=== PATIENT | male | born 1960 | race African-American/Black ===

== ENCOUNTER 2017-02-08 12:55 | Inpatient (IN) | payer OTHER ==
[2017-02-08 13:20] VITALS: BMI 41.1
--- NOTE | 2017-02-08 16:07 | HP ---
Admission [facility] Chief Complaint: I need help to stay off of alcohol and cocaine . Allergies/Adverse Reactions: Allergies Allergy/AdvReac Type Severity Reaction Status Date / Time Penicillins Allergy Severe "SPASMS, Verified 02/08/17 16:11 TONSILS SWELL" History of Present Illness: 56 y/o m pt with a h/o chronic alcoholism and cocaine dep. seeking detox. Exam Limitations: No Limitations - Ebola screening Have you traveled outside of the country in the last 21 days: No Have you had contact with anyone from an Ebola affected area: No Have you been sick,other than usual withdrawal symptoms: No Do you have a fever: No - Review of Systems EENT: reports: Blurred Vision (wears glasses - corrective), Nose Congestion ( occas allergis seasonal) Respiratory: reports: No Symptoms reported GI: reports: No Symptoms Reported : reports: No Symptoms Reported Musculoskeletal: reports: Joint Pain (rt knee), Muscle Pain (thigh) Integumentary: reports: No Symptoms Reported Neuro: reports: No Symptoms reported Endocrine: reports: No Symptoms Reported Hematology: reports: No Symptoms Reported Psychiatric: reports: No Sypmtoms Reported Other Systems: Reviewed and Negative Patient History - Patient Medical History Hx Anemia: No Hx Asthma: No Hx Chronic Obstructive Pulmonary Disease (COPD): No Hx Cancer: No Hx Cardiac Disorders: No Hx Congestive Heart Failure: No Hx Hypertension: Yes Hx Hypercholesterolemia: Yes Hx Pacemaker: No HX Cerebrovascular Accident: No Hx Seizures: No Hx Dementia: No Hx Diabetes: No Hx Gastrointestinal Disorders: No Hx Liver Disease: No Hx Genitourinary Disorders: No Hx Renal Disease (ESRD): Yes (kidney bx at young age) Hx Thyroid Disease: No Hx Human Immunodeficiency Virus (HIV): No Hx Hepatitis C: No Hx Depression: No - Patient Surgical History Past Surgical History: Yes Hx Neurologic Surgery: No Hx Cataract Extraction: No Hx Cardiac Surgery: No Hx Lung Surgery: No Hx Breast Surgery: No Hx Breast Biopsy: No Hx Abdominal Surgery: Yes (hernia repair) Hx Appendectomy: No Hx Cholecystectomy: No Hx Genitourinary Surgery: No Hx Orthopedic Surgery: (L knee meniscus repair 1988) Other Surgical History: BUNION SX Anesthesia Reaction: No - PPD History Previous Implant?: Yes Documented Results: Negative w/o proof PPD to be Administered?: Yes - Reproductive History Patient is a Female of Child Bearing Age (11 -55 yrs old): No - Smoking Cessation Smoking history: Never smoked Have you smoked in the past 12 months: No Aproximately how many cigarettes per day: 0 Cigars Per Day: 0 Hx Chewing Tobacco Use: No Initiated information on smoking cessation: No 'Breaking Loose' booklet given: 02/08/17 - Substance & Tx. History Hx Alcohol Use: Yes Hx Substance Use: Yes Substance Use Type: Alcohol, Cocaine Hx Substance Use Treatment: Yes - Substances Abused Cocaine Route: Inhalation Frequency: 1-2 times per week Amount used: $40 Age of first use: 15 Date of Last Use: 02/08/17 Alcohol-beer Route: Oral Frequency: 3-6 times per week Amount used: 2 (24 oz.) Age of first use: 13 Date of Last Use: 02/08/17 Family Disease History - Family Disease History Family Disease History: Other: Mother (htn) Admission Physical Exam [facility] - Vital Signs Vital Signs: Vital Signs - 24 hr 02/08/17 13:16 Temperature 97 F L Pulse Rate 89 Respiratory 20 Rate Blood Pressure 142/84 56 y/o obese m pt in nad ambulates with a cane - Physical General Appearance: Yes: Disheveled HEENTM: Yes: EOMI, Hearing grossly Normal, Normocephalic, Normal Voice, NICKI Neck: Yes: Within Normal Limits, Supple, Trachea in good position Breast: Yes: Within Normal Limits Cardiology: Yes: Regular Rhythm, Regular Rate, S1, S2 Abdominal: Yes: Normal Bowel Sounds, Non Tender, Soft, Protuberent Genitourinary: Yes: Frequency Back: Yes: Decreased Range of Motion Musculoskeletal: Yes: Back pain, Joint Stiffness (rt knee , left knee well healed scar), Muscle Pain Extremities: Yes: Within Normal Limits Neurological: Yes: nurse office II-XII NML intact, Fully Oriented, Alert Integumentary: Yes: Moist Lymphatic: Yes: Within Normal Limits - Diagnostic (1) Alcohol abuse Current Visit: Yes Status: Chronic (2) Cocaine abuse Current Visit: Yes Status: Chronic (3) Osteoarthritis Current Visit: Yes Status: Chronic Qualifiers: Osteoarthritis location: knee Laterality: bilateral (4) HTN (hypertension) Current Visit: Yes Status: Chronic Qualifiers: Hypertension type: essential hypertension Qualified Code(s): I10 - Essential (primary) hypertension (5) Hyperlipidemia Current Visit: Yes Status: Chronic Qualifiers: Hyperlipidemia type: unspecified Qualified Code(s): E78.5 - Hyperlipidemia, unspecified (6) Obesity Current Visit: Yes Status: Chronic Qualifiers: Obesity severity: unspecified obesity severity Cleared for Admission [facility] - Detox or Rehab [facility] Level of Care: Medically Managed Detox Regimen/Protocol: Librium [facility] Breath Alcohol Content Breath Alcohol Content: 0.073 Urine Drug Screen - Results Drug Screen Negative: No Urine Drug Screen Results: TARYN-Cocaine
[2017-02-08] MEDS ORDERED: diphenhydrAMINE HCL 50 MG CAPSULE PO PRN (16:12)
[2017-02-08] MEDS ORDERED: MENTHOL/PHENOL 1 EACH UD MM PRN (16:12)
[2017-02-08] MEDS ORDERED: hydrOXYzine PAMOATE 25 MG CAPSULE (FP) PO PRN (16:12)
[2017-02-08] MEDS ORDERED: guaiFENesin/D-METHORPHAN HB 10 ML UNIT-DOSE CUPS PO PRN (16:12)
[2017-02-08] MEDS ORDERED: MAG HYDROX/AL HYDROX/SIMETH 30 ML UNIT-DOSE CUP PO PRN (16:12)
[2017-02-08] MEDS ORDERED: MAGNESIUM CITRATE 300 ML BOTTLE PO PRN (16:12)
[2017-02-08] MEDS ORDERED: LOPERAMIDE HCL 2 MG CAPSULE PO PRN (16:12)
[2017-02-08] MEDS ORDERED: chlordiazePOXIDE HCL 25 MG CAPSULE PO PRN (16:12)
[2017-02-08] MEDS ORDERED: IBUPROFEN 400 MG TABLET (FP) PO PRN (16:12)
[2017-02-08] MEDS ORDERED: P-EPHED 60MG/TRIPROLIDI 2.5MG TABLET PO PRN (16:12)
[2017-02-08] MEDS: PATIENT'S OWN MEDICATION (NON-FORMULARY) (Simvastatin 40 MG) PO SCH (21:17)
[2017-02-08] MEDS: DICLOFENAC SODIUM 75 MG TABLET.DR PO SCH (21:17)
[2017-02-08] MEDS: THIAMINE HCL 100 MG TABLET (FP) PO SCH (21:17)
[2017-02-08] MEDS: MAGNESIUM HYDROX 2400MG/30ML ORAL SUSPENSION 30 ML CUP PO PRN (21:33)
[2017-02-08 23:00] LABS: URINE APPEARANCE CLEAR; URINE BILIRUBIN NEGATIVE (NEGATIVE); URINE BLOOD NEGATIVE (NEGATIVE); URINE COLOR STRAW; URINE GLUCOSE (UA) NEGATIVE (NEGATIVE); URINE KETONE NEGATIVE (NEGATIVE); URINE LEUK ESTERASE NEGATIVE (NEGATIVE); URINE NITRITE NEGATIVE (NEGATIVE); URINE PROTEIN NEGATIVE (NEGATIVE); URINE UROBILINOGEN NEGATIVE E.U./dl (0.2-1.0)
[2017-02-08] MEDS ORDERED: chlordiazePOXIDE HCL 25 MG CAPSULE PO SCH (23:00)
--- NOTE | 2017-02-09 06:52 | HP ---
Psychiatrist Admission - Data Date of interview: 02/09/17 Admission source: [facility] Identifying data: This is the first [facility] admission for this 56 years old single Black male, employed as high school band director in [employer] , dimiciled Medical History: Significant for HTN, Hyperlipidemia, Osteoarthritis, Obesity, Neprotic syndrome and surgery for repair of left knee meniscus in 1988 and left total knee replacement in 2016 Psychiatric History: Denies history of previous psychiatric treatment Physical/Sexual Abuse/Trauma History: Denies history of emotionasl, physical or sexual abuse as well as DV relationship Additional Comment: No criminal history Vital Signs: Vital Signs - 24 hr 02/08/17 02/09/17 02/09/17 13:16 00:30 03:30 Temperature 97 F L Pulse Rate 89 Respiratory 20 16 16 Rate Blood Pressure 142/84 Allergies/Adverse Reactions: Allergies Allergy/AdvReac Type Severity Reaction Status Date / Time Penicillins Allergy Severe "SPASMS, Verified 02/08/17 16:11 TONSILS SWELL" Date of last physical exam: 02/09/17 Concur with the findings of this exam: Yes - Substance Abuse/Tx History Hx Alcohol Use: Yes Hx Substance Use: Yes Substance Use Type: Alcohol (Started drinking alcohol at age 13, consumes 2x 24oz 3-6 times weekly. Last drink on 02/08/17), Cocaine (Started using cocaine at age 15, Consumes $40 woth 1-2 times weekly. Last used on 02/08/17) Hx Substance Use Treatment: Yes (one previous inpt detox and one inpt rehab( [facility])) - Admission Criteria Previous failed treatment: No Poor recovery environment: Yes Comorbidities: Yes Lacks judgement: Yes Mental Status Exam - Mental Status Exam Alert and Oriented to: Time, Place, Person Cognitive Function: Fair Patient Appearance: Well Groomed Mood: Happy Affect: Appropriate Patient Behavior: Cooperative Speech Pattern: Clear Voice Loudness: Normal Thought Process: Intact Thought Disorder: Not Present Hallucinations: Denies Suicidal Ideation: Denies Homicidal Ideation: Denies Insight/Judgement: Fair Sleep: Well Appetite: Good Gait/Station: Ataxic (ambulates with cane) Psychiatric Findings - Problem List ([place] 1, 2,3) (1) Alcohol dependence Current Visit: Yes Status: Acute (2) Cocaine dependence Current Visit: Yes Status: Acute (3) HTN (hypertension) Current Visit: Yes Status: Chronic Qualifiers: Hypertension type: essential hypertension Qualified Code(s): I10 - Essential (primary) hypertension (4) Hyperlipidemia Current Visit: Yes Status: Chronic Qualifiers: Hyperlipidemia type: unspecified Qualified Code(s): E78.5 - Hyperlipidemia, unspecified (5) Obesity Current Visit: Yes Status: Chronic Qualifiers: Obesity severity: unspecified obesity severity (6) Osteoarthritis Current Visit: Yes Status: Chronic Qualifiers: Osteoarthritis location: knee Laterality: bilateral - Initial Treatment Plan Initial Treatment Plan: Monitor progress
[2017-02-09] MEDS ORDERED: PT OWN MED DRAWER 7, Y5N ONE ×3 (08:52→20:31)
[2017-02-09 09:58] LABS: MCH 26.2 pg (25.7-33.7); MCHC 33.1 g/dl (32.0-35.9); MEAN CELL VOLUME 79.1 fl (80-96); MEAN PLT VOLUME 8.9 fl (7.5-11.1); PLATELET COUNT 260 K/MM3 (134-434); WHITE BLOOD COUNT 10.5 K/mm3 (4.0-10.0)
[2017-02-09] MEDS ORDERED: amLODIPine BESYLATE 10 MG TABLET (FP) PO SCH (10:00)
[2017-02-09] MEDS: PATIENT'S OWN MEDICATION (NON-FORMULARY) (Olmesartan/Hydrochlorothiazide [Benicar Hct 40-2 PO SCH (10:17)
[2017-02-09] MEDS: amLODIPine BESYLATE 10 MG TABLET (FP) PO SCH (10:17)
[2017-02-09] MEDS: DICLOFENAC SODIUM 75 MG TABLET.DR PO SCH ×2 (10:17→21:34)
[2017-02-09] MEDS: NEBIVOLOL 10 MG TABLET (FP) PO SCH (10:17)
[2017-02-09] MEDS: PRENATAL VITAMINS W/ FOLIC ACID TABLET (FP) PO SCH (10:17)
[2017-02-09] MEDS: ASPIRIN 325 MG TABLET PO SCH (10:18)
[2017-02-09 10:37] LABS: ALBUMIN 4.2 g/dl (3.4-5.0); ANION GAP 6 (8-16); CALCIUM 9.2 mg/dL (8.5-10.1); CO2 31 mmol/L (21-32); GLUCOSE,RANDOM 110 mg/dL (74-106)
[2017-02-09 10:40] LABS: ALK PHOS 99 U/L (45-117); BILIRUBIN,TOTAL 0.6 mg/dL (0.2-1.0); COCKROFT - GAULT 156.86; CREATININE 0.8 mg/dL (0.7-1.3); SGOT/AST 30 U/L (15-37); SGPT/ALT 32 U/L (12-78); TOT PROT 8.1 g/dl (6.4-8.2)
--- NOTE | 2017-02-09 11:42 | EKG ---
Test Reason : Blood Pressure : / mmHG Vent. Rate : 074 BPM Atrial Rate : 074 BPM P-R Int : 162 ms QRS Dur : 092 ms QT Int : 406 ms P-R-T Axes : 057 -03 024 degrees QTc Int : 450 ms NORMAL SINUS RHYTHM POSSIBLE LEFT ATRIAL ENLARGEMENT WHEN COMPARED WITH ECG OF 13-AUG-2013 13:26, NO SIGNIFICANT CHANGE WAS FOUND Confirmed by JEROD PLAZA MD ([id number]) on 02/09/2017 11:42:02 AM Referred By: Confirmed By:JEROD PLAZA MD
[2017-02-09] MEDS: THIAMINE HCL 100 MG TABLET (FP) PO SCH (21:34)
[2017-02-09] MEDS: PATIENT'S OWN MEDICATION (NON-FORMULARY) (Simvastatin 40 MG) PO SCH (21:34)
[2017-02-09] MEDS ORDERED: chlordiazePOXIDE HCL 25 MG CAPSULE PO SCH (23:00)
[2017-02-10] MEDS ORDERED: PT OWN MED DRAWER 7, Y5N ONE ×3 (09:18→21:14)
[2017-02-10] MEDS: ASPIRIN 325 MG TABLET PO SCH (10:27)
[2017-02-10] MEDS: NEBIVOLOL 10 MG TABLET (FP) PO SCH (10:27)
[2017-02-10] MEDS: amLODIPine BESYLATE 10 MG TABLET (FP) PO SCH (10:28)
[2017-02-10] MEDS: PRENATAL VITAMINS W/ FOLIC ACID TABLET (FP) PO SCH (10:28)
[2017-02-10] MEDS: PATIENT'S OWN MEDICATION (NON-FORMULARY) (Olmesartan/Hydrochlorothiazide [Benicar Hct 40-2 PO SCH (10:28)
[2017-02-10] MEDS: DICLOFENAC SODIUM 75 MG TABLET.DR PO SCH ×2 (10:28→21:13)
[2017-02-10] MEDS: THIAMINE HCL 100 MG TABLET (FP) PO SCH (21:14)
[2017-02-10] MEDS: PATIENT'S OWN MEDICATION (NON-FORMULARY) (Simvastatin 40 MG) PO SCH (21:14)
[2017-02-10] MEDS ORDERED: chlordiazePOXIDE 5 MG CAPSULE PO SCH (23:00)
[2017-02-11] MEDS ORDERED: PT OWN MED DRAWER 7, Y5N ONE ×2 (08:47→21:16)
[2017-02-11] MEDS: DICLOFENAC SODIUM 75 MG TABLET.DR PO SCH ×2 (10:14→21:16)
[2017-02-11] MEDS: PRENATAL VITAMINS W/ FOLIC ACID TABLET (FP) PO SCH (10:14)
[2017-02-11] MEDS: amLODIPine BESYLATE 10 MG TABLET (FP) PO SCH (10:14)
[2017-02-11] MEDS: PATIENT'S OWN MEDICATION (NON-FORMULARY) (Olmesartan/Hydrochlorothiazide [Benicar Hct 40-2 PO SCH (10:14)
[2017-02-11] MEDS: ASPIRIN 325 MG TABLET PO SCH (12:35)
[2017-02-11] MEDS: NEBIVOLOL 10 MG TABLET (FP) PO SCH (12:35)
[2017-02-11] MEDS: PATIENT'S OWN MEDICATION (NON-FORMULARY) (Simvastatin 40 MG) PO SCH (21:16)
[2017-02-11] MEDS: THIAMINE HCL 100 MG TABLET (FP) PO SCH (21:16)
[2017-02-11] MEDS: MAGNESIUM HYDROX 2400MG/30ML ORAL SUSPENSION 30 ML CUP PO PRN (21:17)
[2017-02-11] MEDS ORDERED: chlordiazePOXIDE HCL 10 MG CAPSULE PO SCH (23:00)
[2017-02-12] MEDS ORDERED: PT OWN MED DRAWER 7, Y5N ONE ×2 (08:54→20:44)
[2017-02-12] MEDS: amLODIPine BESYLATE 10 MG TABLET (FP) PO SCH (10:18)
[2017-02-12] MEDS: ASPIRIN 325 MG TABLET PO SCH (10:18)
[2017-02-12] MEDS: PRENATAL VITAMINS W/ FOLIC ACID TABLET (FP) PO SCH (10:18)
[2017-02-12] MEDS: PATIENT'S OWN MEDICATION (NON-FORMULARY) (Olmesartan/Hydrochlorothiazide [Benicar Hct 40-2 PO SCH (10:19)
[2017-02-12] MEDS: DICLOFENAC SODIUM 75 MG TABLET.DR PO SCH ×2 (10:19→21:41)
[2017-02-12] MEDS: NEBIVOLOL 10 MG TABLET (FP) PO SCH (10:20)
[2017-02-12] MEDS: THIAMINE HCL 100 MG TABLET (FP) PO SCH (21:41)
[2017-02-12] MEDS: PATIENT'S OWN MEDICATION (NON-FORMULARY) (Simvastatin 40 MG) PO SCH (21:41)
[2017-02-13] MEDS ORDERED: PT OWN MED DRAWER 7, Y5N ONE ×2 (08:53→21:50)
[2017-02-13] MEDS: PRENATAL VITAMINS W/ FOLIC ACID TABLET (FP) PO SCH (09:39)
[2017-02-13] MEDS: amLODIPine BESYLATE 10 MG TABLET (FP) PO SCH (09:39)
[2017-02-13] MEDS: PATIENT'S OWN MEDICATION (NON-FORMULARY) (Olmesartan/Hydrochlorothiazide [Benicar Hct 40-2 PO SCH (09:39)
[2017-02-13] MEDS: ASPIRIN 325 MG TABLET PO SCH (09:39)
[2017-02-13] MEDS: DICLOFENAC SODIUM 75 MG TABLET.DR PO SCH ×2 (09:40→21:50)
[2017-02-13] MEDS: NEBIVOLOL 10 MG TABLET (FP) PO SCH (10:40)
[2017-02-13] MEDS: THIAMINE HCL 100 MG TABLET (FP) PO SCH (21:49)
[2017-02-13] MEDS: PATIENT'S OWN MEDICATION (NON-FORMULARY) (Simvastatin 40 MG) PO SCH (21:50)
[2017-02-13] MEDS: ACETAMINOPHEN 325 MG TABLET (FP) PO PRN (21:51)
[2017-02-14] MEDS ORDERED: PT OWN MED DRAWER 7, Y5N ONE ×2 (09:00→19:31)
[2017-02-14] MEDS: amLODIPine BESYLATE 10 MG TABLET (FP) PO SCH (10:02)
[2017-02-14] MEDS: DICLOFENAC SODIUM 75 MG TABLET.DR PO SCH ×2 (10:02→21:40)
[2017-02-14] MEDS: PRENATAL VITAMINS W/ FOLIC ACID TABLET (FP) PO SCH (10:02)
[2017-02-14] MEDS: ASPIRIN 325 MG TABLET PO SCH (10:02)
[2017-02-14] MEDS: NEBIVOLOL 10 MG TABLET (FP) PO SCH (10:03)
[2017-02-14] MEDS: PATIENT'S OWN MEDICATION (NON-FORMULARY) (Olmesartan/Hydrochlorothiazide [Benicar Hct 40-2 PO SCH (10:03)
[2017-02-14] MEDS: MAGNESIUM HYDROX 2400MG/30ML ORAL SUSPENSION 30 ML CUP PO PRN (10:04)
[2017-02-14] MEDS: THIAMINE HCL 100 MG TABLET (FP) PO SCH (21:39)
[2017-02-14] MEDS: PATIENT'S OWN MEDICATION (NON-FORMULARY) (Simvastatin 40 MG) PO SCH (21:39)
[2017-02-15] MEDS ORDERED: PT OWN MED DRAWER 7, Y5N ONE ×2 (09:23→21:30)
[2017-02-15] MEDS: DICLOFENAC SODIUM 75 MG TABLET.DR PO SCH ×2 (10:11→21:30)
[2017-02-15] MEDS: PRENATAL VITAMINS W/ FOLIC ACID TABLET (FP) PO SCH (10:11)
[2017-02-15] MEDS: amLODIPine BESYLATE 10 MG TABLET (FP) PO SCH (10:11)
[2017-02-15] MEDS: ASPIRIN 325 MG TABLET PO SCH (10:11)
[2017-02-15] MEDS: NEBIVOLOL 10 MG TABLET (FP) PO SCH (10:12)
[2017-02-15] MEDS: PATIENT'S OWN MEDICATION (NON-FORMULARY) (Olmesartan/Hydrochlorothiazide [Benicar Hct 40-2 PO SCH (10:12)
[2017-02-15] MEDS: ACETAMINOPHEN 325 MG TABLET (FP) PO PRN ×2 (10:13→21:30)
[2017-02-15] MEDS: THIAMINE HCL 100 MG TABLET (FP) PO SCH (21:30)
[2017-02-15] MEDS: PATIENT'S OWN MEDICATION (NON-FORMULARY) (Simvastatin 40 MG) PO SCH (21:30)
[2017-02-16] MEDS ORDERED: PT OWN MED DRAWER 7, Y5N ONE ×3 (09:03→21:39)
[2017-02-16] MEDS: PRENATAL VITAMINS W/ FOLIC ACID TABLET (FP) PO SCH (10:39)
[2017-02-16] MEDS: ASPIRIN 325 MG TABLET PO SCH (10:39)
[2017-02-16] MEDS: NEBIVOLOL 10 MG TABLET (FP) PO SCH (10:39)
[2017-02-16] MEDS: amLODIPine BESYLATE 10 MG TABLET (FP) PO SCH (10:39)
[2017-02-16] MEDS: PATIENT'S OWN MEDICATION (NON-FORMULARY) (Olmesartan/Hydrochlorothiazide [Benicar Hct 40-2 PO SCH (10:40)
[2017-02-16] MEDS: ACETAMINOPHEN 325 MG TABLET (FP) PO PRN ×2 (10:40→21:40)
[2017-02-16] MEDS: DICLOFENAC SODIUM 75 MG TABLET.DR PO SCH ×2 (10:40→21:39)
[2017-02-16] MEDS: MAGNESIUM HYDROX 2400MG/30ML ORAL SUSPENSION 30 ML CUP PO PRN (10:40)
[2017-02-16] MEDS: THIAMINE HCL 100 MG TABLET (FP) PO SCH (21:38)
[2017-02-16] MEDS: PATIENT'S OWN MEDICATION (NON-FORMULARY) (Simvastatin 40 MG) PO SCH (21:39)
[2017-02-17] MEDS ORDERED: PT OWN MED DRAWER 7, Y5N ONE ×2 (08:51→19:45)
[2017-02-17] MEDS: amLODIPine BESYLATE 10 MG TABLET (FP) PO SCH (10:18)
[2017-02-17] MEDS: PATIENT'S OWN MEDICATION (NON-FORMULARY) (Olmesartan/Hydrochlorothiazide [Benicar Hct 40-2 PO SCH (10:18)
[2017-02-17] MEDS: PRENATAL VITAMINS W/ FOLIC ACID TABLET (FP) PO SCH (10:18)
[2017-02-17] MEDS: ASPIRIN 325 MG TABLET PO SCH (10:19)
[2017-02-17] MEDS: DICLOFENAC SODIUM 75 MG TABLET.DR PO SCH ×2 (10:19→21:25)
[2017-02-17] MEDS: NEBIVOLOL 10 MG TABLET (FP) PO SCH (10:19)
[2017-02-17] MEDS: PATIENT'S OWN MEDICATION (NON-FORMULARY) (Simvastatin 40 MG) PO SCH (21:25)
[2017-02-17] MEDS: THIAMINE HCL 100 MG TABLET (FP) PO SCH (21:25)
[2017-02-18] MEDS ORDERED: PT OWN MED DRAWER 7, Y5N ONE ×2 (09:13→19:54)
[2017-02-18] MEDS: amLODIPine BESYLATE 10 MG TABLET (FP) PO SCH (10:18)
[2017-02-18] MEDS: PRENATAL VITAMINS W/ FOLIC ACID TABLET (FP) PO SCH (10:18)
[2017-02-18] MEDS: ASPIRIN 325 MG TABLET PO SCH (10:19)
[2017-02-18] MEDS: NEBIVOLOL 10 MG TABLET (FP) PO SCH (10:19)
[2017-02-18] MEDS: PATIENT'S OWN MEDICATION (NON-FORMULARY) (Olmesartan/Hydrochlorothiazide [Benicar Hct 40-2 PO SCH (10:19)
[2017-02-18] MEDS: ACETAMINOPHEN 325 MG TABLET (FP) PO PRN ×2 (10:20→21:36)
[2017-02-18] MEDS: DICLOFENAC SODIUM 75 MG TABLET.DR PO SCH ×2 (10:20→21:37)
[2017-02-18] MEDS: THIAMINE HCL 100 MG TABLET (FP) PO SCH (21:36)
[2017-02-18] MEDS: PATIENT'S OWN MEDICATION (NON-FORMULARY) (Simvastatin 40 MG) PO SCH (21:37)
[2017-02-19] MEDS ORDERED: PT OWN MED DRAWER 7, Y5N ONE ×2 (09:14→19:47)
[2017-02-19] MEDS: ASPIRIN 325 MG TABLET PO SCH (10:11)
[2017-02-19] MEDS: PRENATAL VITAMINS W/ FOLIC ACID TABLET (FP) PO SCH (10:11)
[2017-02-19] MEDS: amLODIPine BESYLATE 10 MG TABLET (FP) PO SCH (10:11)
[2017-02-19] MEDS: NEBIVOLOL 10 MG TABLET (FP) PO SCH (10:11)
[2017-02-19] MEDS: PATIENT'S OWN MEDICATION (NON-FORMULARY) (Olmesartan/Hydrochlorothiazide [Benicar Hct 40-2 PO SCH (10:12)
[2017-02-19] MEDS: DICLOFENAC SODIUM 75 MG TABLET.DR PO SCH ×2 (10:12→21:55)
[2017-02-19] MEDS: THIAMINE HCL 100 MG TABLET (FP) PO SCH (21:55)
[2017-02-19] MEDS: PATIENT'S OWN MEDICATION (NON-FORMULARY) (Simvastatin 40 MG) PO SCH (21:55)
[2017-02-20] MEDS ORDERED: PT OWN MED DRAWER 7, Y5N ONE ×3 (09:12→21:56)
[2017-02-20] MEDS: PRENATAL VITAMINS W/ FOLIC ACID TABLET (FP) PO SCH (10:16)
[2017-02-20] MEDS: amLODIPine BESYLATE 10 MG TABLET (FP) PO SCH (10:16)
[2017-02-20] MEDS: DICLOFENAC SODIUM 75 MG TABLET.DR PO SCH ×2 (10:16→21:54)
[2017-02-20] MEDS: ASPIRIN 325 MG TABLET PO SCH (10:16)
[2017-02-20] MEDS: NEBIVOLOL 10 MG TABLET (FP) PO SCH (10:16)
[2017-02-20] MEDS: PATIENT'S OWN MEDICATION (NON-FORMULARY) (Olmesartan/Hydrochlorothiazide [Benicar Hct 40-2 PO SCH (10:16)
[2017-02-20] MEDS: THIAMINE HCL 100 MG TABLET (FP) PO SCH (21:54)
[2017-02-20] MEDS: ACETAMINOPHEN 325 MG TABLET (FP) PO PRN (21:55)
[2017-02-20] MEDS: PATIENT'S OWN MEDICATION (NON-FORMULARY) (Simvastatin 40 MG) PO SCH (21:56)
[2017-02-21] MEDS ORDERED: PT OWN MED DRAWER 7, Y5N ONE ×2 (09:12→21:40)
--- NOTE | 2017-02-21 09:41 | PN ---
Psychiatric Progress Note Vital Signs: Vital Signs Period Temp Pulse Resp BP Sys/Rush Pulse Ox Last 24 Hr 97.7 F 79-84 18-20 145-146/76-84 Date of Session: 02/21/17 Chief Complaint:: Discharge Note HPI: Patient addressing Alcohol and Cocaine Dependence ROS: HTN, Hyperlipidemia, Osteoarthritis, Obesity were medically managed Current Medications: Active Medications Generic Name Dose Route Start Last Admin Trade Name Freq PRN Reason Stop Dose Admin Acetaminophen 650 mg 02/08/17 16:12 02/20/17 21:55 Tylenol - PO 650 mg Q4H PRN Administration FEVER OR PAIN Al Hydroxide/Mg Hydroxide 30 ml 02/08/17 16:12 Mylanta Oral Suspension - PO Q6H PRN DYSPEPSIA Amlodipine Besylate 10 mg 02/09/17 10:00 02/20/17 10:16 Norvasc - PO 10 mg DAILY SHANNON Administration Aspirin 325 mg 02/09/17 10:00 02/20/17 10:16 Asa - PO 325 mg DAILY SHANNON Administration Diclofenac Sodium 75 mg 02/08/17 22:00 02/20/17 21:54 Voltaren - PO 75 mg BID SHANNON Administration Diphenhydramine HCl 50 mg 02/08/17 16:12 Benadryl - PO HSMR1 PRN INSOMNIA Eucalyptus/Menthol/Phenol/Sorbitol 1 each 02/08/17 16:12 Cepastat Lozenge - MM Q4H PRN SORE THROAT Guaifenesin 10 ml 02/08/17 16:12 Robitussin Dm - PO Q6H PRN COUGH Hydroxyzine Pamoate 25 mg 02/08/17 16:12 Vistaril - PO Q4H PRN AGITATION Loperamide HCl 4 mg 02/08/17 16:12 Imodium - PO Q6H PRN DIARRHEA Magnesium Citrate 300 ml 02/08/17 16:12 Citroma - PO Q48H PRN CONSTIPATION Magnesium Hydroxide 30 ml 02/08/17 16:12 02/16/17 10:40 Milk Of Magnesia - PO 30 ml DAILY PRN Administration CONSTIPATION Nebivolol 10 mg 02/14/17 10:00 02/20/17 10:16 Bystolic - PO 10 mg DAILY SHANNON Administration Non-Formulary Medication 1 each 02/09/17 10:00 02/20/17 10:16 Olmesartan/Hydrochlorothiazide [Benicar Hct 40-25 Mg Tablet] PO 1 each DAILY SHANNON Administration Non-Formulary Medication 40 mg 02/08/17 22:00 02/20/17 21:56 Simvastatin PO 40 mg HS SHANNON Administration Multivit/Folic Acid/Iron 1 tab 02/09/17 10:00 02/20/17 10:16 Vitamins (Sjr) - PO 1 tab DAILY SHANNON Administration Pseudoephedrine/Triprolidine 1 combo 02/08/17 16:12 Actifed - PO TID PRN NASAL CONGESTION Thiamine HCl 100 mg 02/08/17 22:00 02/20/17 21:54 Vitamin B1 - PO 100 mg HS SHANNON Administration Current Side Effect: No Lab tests ordered: Yes Lab tests reviewed: Yes Provider note:: Patient will complete this program on 02/21/17. He has met his treatment goals and will continue to address his issues in outpatient treatment at [facility]. Told commercial insurance underwriter that from his participation in this program, he has learned to identify his triggers and how better to address them. He is stable for discharge on 02/21/17 Total face to face time:: 35 Mental Status Exam - Mental Status Exam Alert and Oriented to: Time, Place, Person Cognitive Function: Fair Patient Appearance: Well Groomed Mood: Hopeful, Euthymic Affect: Appropriate Patient Behavior: Cooperative Speech Pattern: Clear Voice Loudness: Normal Thought Process: Intact, Goal Oriented Thought Disorder: Not Present Hallucinations: Denies Suicidal Ideation: Denies Homicidal Ideation: Denies Insight/Judgement: Fair Sleep: Fair Appetite: Good Muscle strength/Tone: Normal Gait/Station: Ataxic (ambulated with a cane) Psychiatric Treatment Plan - Problem List (1) Alcohol dependence Current Visit: Yes (2) Cocaine dependence Current Visit: Yes (3) HTN (hypertension) Current Visit: Yes Qualifiers: Hypertension type: essential hypertension Qualified Code(s): I10 - Essential (primary) hypertension (4) Hyperlipidemia Current Visit: Yes Qualifiers: Hyperlipidemia type: unspecified Qualified Code(s): E78.5 - Hyperlipidemia, unspecified (5) Obesity Current Visit: Yes Qualifiers: Obesity severity: unspecified obesity severity (6) Osteoarthritis Current Visit: Yes Qualifiers: Osteoarthritis location: knee Laterality: bilateral Initial treatment plan: Patient will be discharged tomorrow and referred to [facility] for outpatient treatment
[2017-02-21] MEDS: amLODIPine BESYLATE 10 MG TABLET (FP) PO SCH (10:21)
[2017-02-21] MEDS: ASPIRIN 325 MG TABLET PO SCH (10:21)
[2017-02-21] MEDS: PRENATAL VITAMINS W/ FOLIC ACID TABLET (FP) PO SCH (10:21)
[2017-02-21] MEDS: NEBIVOLOL 10 MG TABLET (FP) PO SCH (10:21)
[2017-02-21] MEDS: DICLOFENAC SODIUM 75 MG TABLET.DR PO SCH ×2 (10:22→21:39)
[2017-02-21] MEDS: PATIENT'S OWN MEDICATION (NON-FORMULARY) (Olmesartan/Hydrochlorothiazide [Benicar Hct 40-2 PO SCH (10:22)
[2017-02-21] MEDS: PATIENT'S OWN MEDICATION (NON-FORMULARY) (Simvastatin 40 MG) PO SCH (21:39)
[2017-02-21] MEDS: THIAMINE HCL 100 MG TABLET (FP) PO SCH (21:39)
[2017-02-22 08:01] VITALS: BP 153/90; PULSE 76; TEMP 98.5
[2017-02-22] MEDS ORDERED: PT OWN MED DRAWER 7, Y5N ONE (08:49)
[2017-02-22] MEDS: NEBIVOLOL 10 MG TABLET (FP) PO SCH (09:25)
[2017-02-22] MEDS: PATIENT'S OWN MEDICATION (NON-FORMULARY) (Olmesartan/Hydrochlorothiazide [Benicar Hct 40-2 PO SCH (09:25)
[2017-02-22] MEDS: PRENATAL VITAMINS W/ FOLIC ACID TABLET (FP) PO SCH (09:25)
[2017-02-22] MEDS: DICLOFENAC SODIUM 75 MG TABLET.DR PO SCH (09:25)
[2017-02-22] MEDS: ASPIRIN 325 MG TABLET PO SCH (09:25)
[2017-02-22] MEDS: amLODIPine BESYLATE 10 MG TABLET (FP) PO SCH (09:25)
== END 2017-02-22 09:30 | disposition home or self-care (01) | DRG 895 ==
LOC: YASAS 12:55 → Y3W 17:49
PROVIDERS: ADMIT Psychiatry & Neurology Psychiatry; ATTEND Psychiatry & Neurology Psychiatry
PROC: HZ42ZZZ Group Counseling for Substance Abuse Treatment, Cognitive-Behavioral (ICD-10-PCS; principal; 2017-02-22)
DX: F10.20 Alcohol dependence, uncomplicated (principal); F14.20 Cocaine dependence, uncomplicated; Z68.41 Body mass index [BMI] 40.0-44.9, adult; I10 Essential (primary) hypertension; E78.5 Hyperlipidemia, unspecified; M17.0 Bilateral primary osteoarthritis of knee; R26.89 Other abnormalities of gait and mobility; Z99.89 Dependence on other enabling machines and devices; E66.01 Morbid (severe) obesity due to excess calories
CPT/HCPCS: 36415; 80053; 81003; 85027; 86593; 93005; 93010

== ENCOUNTER 2017-03-20 07:30 | Inpatient (IN) | payer BC, OTHER ==
[2017-03-07 13:52] VITALS: BMI 41.1
--- NOTE | 2017-03-19 10:36 | HP ---
[facility] - Chief Complaint Chief Complaint: right hip pain - Past Medical History Allergies/Adverse Reactions: Allergies Allergy/AdvReac Type Severity Reaction Status Date / Time Penicillins Allergy Severe "SPASMS, Verified 03/07/17 13:36 TONSILS SWELL" - Current Medications Current Medications: Home Medications Medication Instructions Recorded Meloxicam [Mobic] 15 mg PO DAILY 05/11/16 Amlodipine Besylate [Norvasc -] 10 mg PO DAILY #30 mg 02/21/17 Aspirin [ASA -] 325 mg PO DAILY #30 tablet 02/21/17 Diclofenac Sodium [Voltaren -] 75 mg PO BID #60 mg 02/21/17 Nebivolol [Bystolic -] 10 mg PO DAILY #30 tab 02/21/17 Olmesartan/Hydrochlorothiazide 1 each PO DAILY #30 mg 02/21/17 [Benicar Hct 40-25 mg Tablet] Simvastatin [Zocor -] 40 mg PO HS #30 mg 02/21/17 Ferrous Sulfate 325 mg PO DAILY 03/08/17 Satellite Physical Exam - Physical Examination General Appearance: Well Nourished, Well Developed, Alert & Oriented x3 ENT: Clear Lung: Normal air movement Heart: Regular rate & rhythm Extremities: Other (right hip- +ttp, decr rom, nvi xrays show severe right hip djd) Neurological: Intact, Alert, Oriented Satellite Impression/Plan - Impression/Plan Impression: right hip djd Operative Procedure: right harpal thr Date to be Performed: 03/20/17
[2017-03-20] MEDS ORDERED: ceFAZolin SODIUM 1 GM VIAL ONE ×2 (07:35→08:42)
[2017-03-20] MEDS ORDERED: VANCOMYCIN 1,000 MG VIAL (RESTRICTED TO ID ONLY) ONE ×2 (07:35→08:06)
[2017-03-20] MEDS ORDERED: TRANEXAMIC ACID 1000 MG/10 ML VIAL ONE ×2 (07:36→08:51)
[2017-03-20] MEDS ORDERED: DEXAMETHASONE SOD PHOSPHATE/PF 10 MG/ML SDV ONE (07:42)
[2017-03-20] MEDS ORDERED: BUPIVACAINE HCL/PF (5 MG/ML) 30 ML VIAL IJ ONE (07:43)
[2017-03-20] MEDS ORDERED: MIDAZOLAM HCL 2 MG/2 ML SINGLE DOSE VIAL ONE (07:43)
[2017-03-20] MEDS ORDERED: TRANEXAMIC ACID 1000 MG/10 ML VIAL IVPUSH ONE (07:47)
[2017-03-20] MEDS ORDERED: GABAPENTIN 300 MG CAPSULE (FP) PO ONE (07:47)
[2017-03-20] MEDS ORDERED: oxyCODONE HCL 10 MG SUSTAINED ACTING TABLET PO ONE (07:47)
[2017-03-20] MEDS ORDERED: CELECOXIB 200 MG CAPSULE PO ONE (07:47)
[2017-03-20] MEDS ORDERED: CEFAZOLIN 2 GM in DEXTROSE 5%-WATER - 50 ML IVPB ONE (07:47)
[2017-03-20] MEDS ORDERED: BUPIVACAINE HCL/PF 0.5% (5MG/ML) 10 ML VIAL ONE (08:09)
[2017-03-20] MEDS ORDERED: ePHEDrine SULFATE 50 MG/1 ML AMPULE ONE (09:02)
[2017-03-20] MEDS ORDERED: ONDANSETRON 4 MG/2 ML VIAL IVPUSH PRN (09:34)
[2017-03-20] MEDS ORDERED: MAGNESIUM HYDROX 2400MG/30ML ORAL SUSPENSION 30 ML CUP PO PRN (10:45)
[2017-03-20] MEDS ORDERED: MAG HYDROX/AL HYDROX/SIMETH 30 ML UNIT-DOSE CUP PO PRN (10:45)
[2017-03-20] MEDS ORDERED: ONDANSETRON 4 MG/2 ML VIAL IVPB PRN (10:45)
[2017-03-20] MEDS ORDERED: LACTATED RINGERS SOLUTION 1,000 ML IV SCH (10:45)
--- NOTE | 2017-03-20 10:48 | OP ---
Operative Note - Note: Operative Date: 03/20/17 (alfa) Pre-Operative Diagnosis: right hip djd Operation: right harpal thr Post-Operative Diagnosis: Same as Pre-op Surgeon: Smooth Sanches Professional Volleyball Player: Chris Cardoza) Anesthesiologist/FIELD SERVICE SPECIALIST: Yoselin Knox Anesthesia: Spinal, Local Specimens Removed: femoral head Estimated Blood Loss (mls): 200 Operative Report Dictated: Yes
[2017-03-20] MEDS: ACETAMINOPHEN 325 MG TABLET (FP) PO SCH ×2 (11:47→18:18)
[2017-03-20] MEDS: oxyCODONE HCL 5 MG TABLET PO PRN ×3 (14:07→21:26)
[2017-03-20] MEDS: CEFAZOLIN 2 GM/D5W 50 ML IVPB SCH (16:29)
[2017-03-20] MEDS: oxyCODONE HCL 10 MG SUSTAINED ACTING TABLET PO SCH (21:25)
[2017-03-20] MEDS: GABAPENTIN 300 MG CAPSULE (FP) PO SCH (21:26)
[2017-03-20] MEDS: SENNOSIDES/DOCUSATE COMBO (SENNA PLUS) TABLET (UD) PO SCH (21:27)
[2017-03-20] MEDS: ATORVASTATIN CA 20 MG TABLET (FP) PO SCH (21:27)
[2017-03-20] MEDS ORDERED: PATIENT'S OWN MEDICATION (NON-FORMULARY) (Simvastatin 40 MG) PO SCH (22:00)
[2017-03-20] MEDS: LACTATED RINGERS SOLUTION 1,000 ML IV SCH (23:53)
[2017-03-21] MEDS: CEFAZOLIN 2 GM/D5W 50 ML IVPB SCH (00:51)
[2017-03-21] MEDS: ACETAMINOPHEN 325 MG TABLET (FP) PO SCH ×4 (00:51→17:42)
[2017-03-21] MEDS: oxyCODONE HCL 5 MG TABLET PO PRN ×3 (06:11→17:43)
--- NOTE | 2017-03-21 07:39 | PN ---
Progress Note (short form) - Note Progress Note: Ortho Pt seen and examined s/p right harpal thr pod #1 Selected Entries 03/21/17 06:00 Temperature 98.0 F Pulse Rate 78 Respiratory 20 Rate Blood Pressure 134/70 dressing c/d/i, calf soft, nt nvi cbc pending a/p PT hip precautions dvt ppx pain control d/c home tomorrow if stable
[2017-03-21] MEDS: ASPIRIN 325 MG TABLET PO SCH (08:00)
[2017-03-21 08:39] LABS: MCH 25.6 pg (25.7-33.7); MCHC 32.1 g/dl (32.0-35.9); MEAN CELL VOLUME 79.7 fl (80-96); MEAN PLT VOLUME 9.1 fl (7.5-11.1); PLATELET COUNT 255 K/MM3 (134-434); RDW 13.7 % (11.9-15.9); WHITE BLOOD COUNT 14.9 K/mm3 (4.0-10.8)
[2017-03-21] MEDS: VALSARTAN 160 MG TABLET (UD) PO SCH (09:05)
[2017-03-21] MEDS: MULTIVITAMINS (DAILY MVI) TABLET (FP) PO SCH (09:06)
[2017-03-21] MEDS: PANTOPRAZOLE 40 MG TABLET (FP) PO SCH (09:06)
[2017-03-21] MEDS: SENNOSIDES/DOCUSATE COMBO (SENNA PLUS) TABLET (UD) PO SCH ×2 (09:06→21:22)
[2017-03-21] MEDS: HYDROCHLOROTHIAZIDE 25 MG TABLET (FP) PO SCH (09:06)
[2017-03-21] MEDS: GABAPENTIN 300 MG CAPSULE (FP) PO SCH ×2 (09:06→21:22)
[2017-03-21] MEDS: amLODIPine BESYLATE 10 MG TABLET (FP) PO SCH (09:06)
[2017-03-21] MEDS: FERROUS SO4 325 MG TABLET (FP) PO SCH (09:06)
[2017-03-21] MEDS: LACTATED RINGERS SOLUTION 1,000 ML IV SCH (09:06)
[2017-03-21] MEDS: NEBIVOLOL 10 MG TABLET (FP) PO SCH (09:06)
[2017-03-21] MEDS: oxyCODONE HCL 10 MG SUSTAINED ACTING TABLET PO SCH ×2 (09:07→21:22)
--- NOTE | 2017-03-21 09:27 | SPEC ---
DATE OF OPERATION: 03/20/2017 PREOPERATIVE DIAGNOSIS: Degenerative joint disease, right Hip POSTOPERATIVE DIAGNOSIS: Degenerative joint disease, right Hip PROCEDURE: Right total hip replacement with robotic assisted navigation (MAKOplasty) SURGICAL ATTENDING: Smooth Sanches MD SETTLEMENT CLERK: JOSEY Noyola, and Chris Cardoza MD ANESTHESIA: Spinal and regional. CLOSURE: CLOSURE: An Accolade II size 4 femoral stem, a 36 ceramic +2.5 head, and a 54 Tritanium press-fit acetabulum, No. 1 Vicryl fascia 0 and 2-0 for subcutaneous, 3-0 Monocryl subcuticular with skin glue for skin, 4-0 undyed Vicryl for pin sites. ESTIMATED BLOOD LOSS: Approximately 150 mL. COMPLICATIONS: None. CONDITION: To recovery room in stable condition. DESCRIPTION OF OPERATIVE PROCEDURE: The patient was taken to the operating room. Spinal anesthesia as well as sciatic block was administered by the anesthesiologist. The IV Kefzol and TXA were administered prophylactically prior to the case. The patient was placed in the lateral decubitus position with all prominences well-padded. An EKG pad was secured to the inferior pole of the patella for limb length calculations intraoperatively. The right hip area was prepped and draped in the usual sterile fashion. A 12.0-15.0 cm curved longitudinal incision over the posterolateral aspect of the greater trochanter was made. Hemostasis was achieved with Bovie cautery. Sharp dissection was carried down to the level of the fascia. The fascia was opened the entire length of the incision, spreading the gluteus nicole fibers in the direction of their origin. A Charnley retractor was placed in this layer, and care was taken to be far away from the sciatic nerve. The short external rotators were detached off the insertion of the greater trochanter and peeled off the capsule. A posterior capsulectomy was then performed. A checkpoint was malleted into the greater trochanter. Three small stab incisions were done on the iliac crest. Through these stab incisions, threaded guide pins were drilled into the iliac crest. These pins were fastened to the Navigation array. The check point on the greater trochanter, and the EKG pad on the inferior pole of the patella were used to measure preoperative limb length and offset. The hip was then dislocated. The hip was osteotomized at the appropriate level as directed by the preoperative template. Anterior and posterior retractors were placed around the acetabulum. Circumferential labrum was excised. A checkpoint was malleted into the acetabulum superiorly. The acetabulum was then registered with the Navigation device with multiple sites within the acetabulum and around the rim of the acetabulum. I t was then confirmed popping the blue bubbles, confirming ideal position and confirmation of adequate registration with the Navigation device. Using a 48 reamer, which was decided preoperatively on the preoperative template, the robotic arm was brought into the field and was used to ream the acetabulum down to the appropriate depth with the appropriate orientation and inversion applied. After reaming, a good hemispherical bleeding surface was encountered in the acetabulum. A BENITEZ shell of the appropriate size was then malleted into place achieving excellent fit. Confirmation of the appropriate orientation and inversion was confirmed using the probe, and assuring that the acetabular cup was placed in the ideal position as templated preoperatively. A real liner was then clipped into place with a 10 degree lip in the posterior-superior quadrant. Anterior and posterior osteophytes were removed using osteotome. Next, our attention was directed to the femur. The proximal femur was opened with a box chisel, rat-tail, anchovy and serial reamers. This was done until the appropriate reamer achieved good fit and fill of the proximal femur. A trial reduction with the appropriate neck and head, as again measured from our preoperative template, was performed. Limb lengths were confirmed both visually and using the Navigation device, again measuring the inferior pole of the patella and the checkpoint of the greater trochanter. This confirmed ideal position of the femoral component, lengths and offset. The trial components were removed. The real component was malleted into place. The head was cold-welded to the Charnley and the hip was reduced. Again, the hip was found to have equal limb lengths as described previously. The hip was also taken through a range of motion and found to be stable in external rotation and extension, was stable in marked flexion, stable in adduction and internal rotation, and had a positive hang test and negative telescoping. The hip was irrigated with copious amounts of irrigation. Hemostasis was achieved. Vancomycin powder was sprinkled into the joint. A second dose of TXA was administered. The fascia was closed with No. 1 Vicryl interrupted suture, 0 and 2-0 for subcutaneous, and 3-0 Monocryl subcuticular for skin with skin glue. This was followed by an Aquacel dressing. The patient was flipped into the supine position. Bilateral SCDs and an abduction pillow were applied. X-rays showed good position of the components. The patient was awakened from anesthesia and transferred to the recovery room in stable condition. Sergey [id number]
[2017-03-21] MEDS ORDERED: PATIENT'S OWN MEDICATION (NON-FORMULARY) (Olmesartan/Hydrochlorothiazide [Benicar Hct 40-2 PO SCH (10:00)
[2017-03-21] MEDS ORDERED: PATIENT'S OWN MEDICATION (NON-FORMULARY) (Ferrous Sulfate [Ferrous Sulfate] 325 MG) PO SCH (10:00)
--- NOTE | 2017-03-21 13:14 | PN ---
Progress Note, Physician Chief Complaint: s/p right total hip replacement BENITEZ under spinal anesthesia History of Present Illness: peripheral nerve block for pain control, post op day one - Current Medication List Current Medications: Active Medications Acetaminophen (Tylenol -) 650 mg PO Q6H [facility] Stop: 03/23/17 17:59 Last Admin: 03/21/17 12:09 Dose: 650 mg Al Hydroxide/Mg Hydroxide (Mylanta Oral Suspension -) 30 ml PO Q4H PRN PRN Reason: DYSPEPSIA Amlodipine Besylate (Norvasc -) 10 mg PO DAILY [facility] Last Admin: 03/21/17 09:06 Dose: 10 mg Aspirin (Asa -) 325 mg PO DAILY@0800 [facility] Last Admin: 03/21/17 08:00 Dose: 325 mg Atorvastatin Calcium (Lipitor -) 20 mg PO HS [facility] Last Admin: 03/20/17 21:27 Dose: 20 mg Fentanyl (Sublimaze Injection -) 50 mcg IVPUSH [id number] PRN PRN Reason: PAIN Stop: 03/23/17 09:35 Ferrous Sulfate (Feosol -) 325 mg PO DAILY [facility] Last Admin: 03/21/17 09:06 Dose: 325 mg Gabapentin (Neurontin -) 300 mg PO BID [facility] Last Admin: 03/21/17 09:06 Dose: 300 mg Hydrochlorothiazide (Hctz -) 25 mg PO DAILY [facility] Last Admin: 03/21/17 09:06 Dose: 25 mg Lactated Ringer's (Lactated Ringers Solution) 1,000 mls @ 125 mls/hr IV ASDIR [facility] Last Admin: 03/21/17 09:06 Dose: Not Given Magnesium Hydroxide (Milk Of Magnesia -) 30 ml PO PRN PRN PRN Reason: CONSTIPATION Multivitamins/Minerals/Vitamin C (Tab-A-Vit -) 1 tab PO DAILY [facility] Last Admin: 03/21/17 09:06 Dose: 1 tab Nebivolol (Bystolic -) 10 mg PO DAILY [facility] Last Admin: 03/21/17 09:06 Dose: 10 mg Ondansetron HCl (Zofran Injection) 4 mg IVPB Q6H PRN PRN Reason: NAUSEA Oxycodone HCl (Oxycontin -) 10 mg PO BID [facility] Stop: 03/23/17 21:59 Last Admin: 03/21/17 09:07 Dose: 10 mg Oxycodone HCl (Roxicodone -) 5 mg PO Q3H PRN PRN Reason: PAIN LEVEL 1-5 Last Admin: 03/20/17 21:26 Dose: 5 mg Oxycodone HCl (Roxicodone -) 10 mg PO Q3H PRN PRN Reason: PAIN LEVEL 6-10 Last Admin: 03/21/17 12:08 Dose: 10 mg Pantoprazole Sodium (Protonix -) 40 mg PO DAILY [facility] Last Admin: 03/21/17 09:06 Dose: 40 mg Senna/Docusate Sodium (Pericolace -) 2 tablet PO BID [facility] Last Admin: 03/21/17 09:06 Dose: 2 tablet Valsartan (Diovan -) 320 mg PO DAILY [facility] Last Admin: 03/21/17 09:05 Dose: 320 mg - Objective Vital Signs: Vital Signs Temperature 98.0 F 03/21/17 06:00 Pulse Rate 78 03/21/17 06:00 Respiratory Rate 20 03/21/17 06:00 Blood Pressure 134/70 03/21/17 06:00 O2 Sat by Pulse Oximetry (%) 99 03/21/17 06:34 Constitutional: Yes: Well Nourished Cardiovascular: Yes: WNL Respiratory: Yes: WNL Gastrointestinal: Yes: WNL Labs: CBC, BMP 03/21/17 07:00 Assessment/Plan Patient doing well, pain controlled, no adverse reaction to anesthetic, motor function returned to normal. Dept of anesthesia will sign off care at this time.
[2017-03-21] MEDS: ATORVASTATIN CA 20 MG TABLET (FP) PO SCH (21:22)
[2017-03-22 05:01] VITALS: TEMP 97.9
[2017-03-22] MEDS: ACETAMINOPHEN 325 MG TABLET (FP) PO SCH ×3 (05:49→11:23)
--- NOTE | 2017-03-22 08:13 | PN ---
Progress Note (short form) - Note Progress Note: Ortho Pt seen and examined s/p right harpal thr pod #2 Selected Entries 03/22/17 05:00 Temperature 97.9 F Pulse Rate 85 Respiratory 20 Rate Blood Pressure 132/74 Laboratory Tests 03/21/17 07:00 WBC 14.9 H Hgb 12.4 Hct 38.6 Plt Count 255 dressing c/d/i, calf soft, nt nvi a/p PT hip precautions dvt ppx pain control d/c home today f/u in 1 week
--- NOTE | 2017-03-22 08:14 | DS ---
Physical Examination Vital Signs: Vital Signs Temperature 97.9 F 03/22/17 05:00 Pulse Rate 85 03/22/17 05:00 Respiratory Rate 20 03/22/17 05:00 Blood Pressure 132/74 03/22/17 05:00 O2 Sat by Pulse Oximetry (%) 96 03/22/17 05:00 Labs: CBC, BMP 03/21/17 07:00 Discharge Summary Reason For Visit: OSTEOARTHRITIS Procedures: Principal: s/p right harpal thr Hospital Course: admitted for elective right harpal thr, uneventful post-op, stable for d/c Condition: Good - Instructions Diet, Activity, Other Instructions: Post-op Instructions-Total Hip Replacement Call the office for a follow-up appointment in 1 week - [phone] Aspirin 325mg daily for 6 weeks. Pain medication was sent into your pharmacy. Apply Graduated Compression Stockings (TEDs) to both lower extremities- remove daily for hygiene ONLY Apply Sequential Compression Device (SCDs) to both Lower extremities remove for PT and hygiene ONLY Apply cold packs to affected area for 15 minutes every 2 hours. Physical Therapist will come to your home for the first 5 days. You will be set up with outpatient PT at your first post-operative visit. Patient may ambulate as tolerated-encourage self care (at least every 2-3 hours while awake) with walker or cane Maintain Aquacel (waterproof) dressing to operative wound (will be removed by surgeon at first office visit) Shower with Aquacel dressing in place-if Aquacel integrity compromised, remove and apply dry sterile dressing and notify Orthopedist. DO NOT SHOWER unless Orthopedists approves without Aquacel dressing CONTACT THE OFFICE FOR ANY CHANGE IN YOUR CONDITION (for example-fever greater than 102 degrees,excessive bleeding from operative site, purulent drainage, severe swelling or pain) GO TO THE EMERGENCY ROOM IF THERE IS A MEDICAL EMERGENCY Hip Precautions: * Keep a rolled towel under affected heel while in bed or chair (to keep knee in extension) * Dependent upon approach: * Posterior - do not cross legs; do not sit on low chairs or toilets. * If you have any questions, please do not hesitate to call the office - . Referrals: Chris Cardoza MD [Staff Physician] - Disposition: [facility]NS/HOME HEALTH CARE - Home Medications Comprehensive Discharge Medication List: Ambulatory Orders Meloxicam [Mobic] 15 mg PO DAILY 05/11/16 Amlodipine Besylate [Norvasc -] 10 mg PO DAILY #30 mg 02/21/17 Aspirin [ASA -] 325 mg PO DAILY #30 tablet 02/21/17 Diclofenac Sodium [Voltaren -] 75 mg PO BID #60 mg 02/21/17 Nebivolol [Bystolic -] 10 mg PO DAILY #30 tab 02/21/17 Olmesartan/Hydrochlorothiazide [Benicar Hct 40-25 mg Tablet] 1 each PO DAILY # 30 mg 02/21/17 Simvastatin [Zocor -] 40 mg PO HS #30 mg 02/21/17 Ferrous Sulfate 325 mg PO DAILY 03/08/17 Oxycodone HCl/Acetaminophen [Percocet 5-325 mg Tablet -] 1 - 2 tab PO Q6H #50 tab MDD 8 03/20/17
[2017-03-22] MEDS: ASPIRIN 325 MG TABLET PO SCH (08:22)
[2017-03-22 08:41] LABS: MCH 27.3 pg (25.7-33.7); MCHC 34.7 g/dl (32.0-35.9); MEAN CELL VOLUME 78.7 fl (80-96); PLATELET COUNT 207 K/MM3 (134-434); RDW 13.4 % (11.9-15.9); WHITE BLOOD COUNT 12.5 K/mm3 (4.0-10.8)
[2017-03-22 10:00] VITALS: BP 122/60; PULSE 79
[2017-03-22] MEDS: VALSARTAN 160 MG TABLET (UD) PO SCH (10:01)
[2017-03-22] MEDS: NEBIVOLOL 10 MG TABLET (FP) PO SCH (10:01)
[2017-03-22] MEDS: PANTOPRAZOLE 40 MG TABLET (FP) PO SCH (10:01)
[2017-03-22] MEDS: amLODIPine BESYLATE 10 MG TABLET (FP) PO SCH (10:02)
[2017-03-22] MEDS: LACTATED RINGERS SOLUTION 1,000 ML IV SCH (10:02)
[2017-03-22] MEDS: FERROUS SO4 325 MG TABLET (FP) PO SCH (10:02)
[2017-03-22] MEDS: SENNOSIDES/DOCUSATE COMBO (SENNA PLUS) TABLET (UD) PO SCH (10:03)
[2017-03-22] MEDS: oxyCODONE HCL 10 MG SUSTAINED ACTING TABLET PO SCH (10:03)
[2017-03-22] MEDS: GABAPENTIN 300 MG CAPSULE (FP) PO SCH (10:06)
[2017-03-22] MEDS: MULTIVITAMINS (DAILY MVI) TABLET (FP) PO SCH (10:06)
[2017-03-22] MEDS: HYDROCHLOROTHIAZIDE 25 MG TABLET (FP) PO SCH (10:06)
--- NOTE | 2017-03-22 14:06 | PATH ---
Surgical Pathology Report Patient Name: TI GU Med. Rec. #: [id number] /Age/Gender: 1960 (Age: 56) / M Account: [id number] Location: [facility] MED-SURG Taken: 03/20/2017 Received: 03/20/2017 Reported: 03/22/2017 Physicians: Sergey Moore M.D. Specimen(s) Received RIGHT FEMORAL HEAD Clinical History Right hip osteoarthritis Final Diagnosis FEMORAL HEAD, RIGHT, TOTAL HIP REPLACEMENT MAKOPLASTU: CONSISTENT WITH DEGENERATIVE JOINT DISEASE. Electronically Signed Vladimir Calvin M.D. Gross Description Received in formalin, labeled "right femoral head" is a 4.5 x 4.5 x 4.2 cm femoral head with 0.8 cm in length portion of femoral neck attached. The margin of resection is smooth. There is a 2.0 cm in greatest dimension area of eburnation present. The remaining articular surface is jane-yellow and focally granular. The underlying trabecular bone is yellow and hard. A client account representative section is submitted in one cassette, following decalcification. /03/21/201703/21/2017
== END 2017-03-22 14:30 | disposition home health service (06) | DRG 470 ==
LOC: FM/S 07:30
PROVIDERS: ADMIT Orthopaedic Surgery; ATTEND Orthopaedic Surgery
PROC: 8E0W0CZ Robotic Assisted Procedure of Trunk Region, Open Approach (ICD-10-PCS; 2017-03-20)
PROC: 0SR90JZ Replacement of Right Hip Joint with Synthetic Substitute, Open Approach (ICD-10-PCS; principal; 2017-03-20 09:12)
DX: M16.11 Unilateral primary osteoarthritis, right hip (principal); I10 Essential (primary) hypertension; E78.5 Hyperlipidemia, unspecified
CPT/HCPCS: 36415; 73502-TC-RT; 85027; 88304-TC; 88311-TC; 94010; 94760; 97116-GP; 97162-PG

== ENCOUNTER 2025-05-15 13:49 | Inpatient (IN) | payer OTHER ==
[2025-05-15 15:35] VITALS: BMI 36.0
[2025-05-15] MEDS ORDERED: POLYETHYLENE GLYCOL (HEALTHYLAX) 3350 17 GM PACKET PO PRN (16:25)
[2025-05-15] MEDS ORDERED: IBUPROFEN 600 MG TABLET (FP) PO PRN (16:25)
[2025-05-15] MEDS ORDERED: BENZONATATE 200 MG CAPSULE PO PRN (16:25)
[2025-05-15] MEDS ORDERED: ONDANSETRON *ODT* 4 MG TABLET SL PRN (16:25)
[2025-05-15] MEDS ORDERED: MAGNESIUM HYDROX 2400MG/30ML ORAL SUSPENSION 30 ML CUP PO PRN (16:25)
[2025-05-15] MEDS ORDERED: NALOXONE (NARCAN) HCL 4 MG/0.1 ML SPRAY NS PRN (16:25)
[2025-05-15] MEDS ORDERED: IBUPROFEN 400 MG TABLET (FP) PO PRN (16:25)
[2025-05-15] MEDS ORDERED: ACETAMINOPHEN 325 MG TABLET (FP) PO PRN (16:25)
[2025-05-15] MEDS ORDERED: LOPERAMIDE HCL 2 MG CAPSULE PO PRN (16:25)
[2025-05-15] MEDS ORDERED: guaiFENesin 600 MG TABLET.ER (FP) PO PRN (16:25)
[2025-05-15] MEDS ORDERED: MAG HYDROX/AL HYDROX/SIMETH 30 ML UNIT-DOSE CUP PO PRN (16:25)
[2025-05-15] MEDS ORDERED: BENZOCAINE/MENTHOL (CHLORASEPTIC ) LOZENGE MM PRN (16:25)
[2025-05-15] MEDS ORDERED: BISMUTH SUBSALICYLATE 524 MG/30 ML PO PRN (16:25)
[2025-05-15] MEDS: METOPROLOL TARTRATE 25 MG TABLET (FP) PO ONE (17:55)
[2025-05-15] MEDS: ATORVASTATIN CA 20 MG TABLET (FP) PO SCH (21:52)
[2025-05-15] MEDS: MELATONIN 5 MG TABLETS PO SCH (21:52)
[2025-05-15] MEDS: CARVEDILOL 6.25 MG TABLET (FP) PO SCH (21:52)
[2025-05-15] MEDS: THIAMINE 100 MG TABLET PO SCH (21:52)
[2025-05-15] MEDS ORDERED: PATIENT'S OWN MEDICATION (NON-FORMULARY) (Simvastatin 40 MG Tablet) PO SCH (22:00)
[2025-05-16] MEDS: FUROSEMIDE 20 MG TABLET (FP) PO SCH (05:49)
[2025-05-16] MEDS: PRENATAL VITAMINS W/ FOLIC ACID TABLET (FP) PO SCH (09:59)
[2025-05-16] MEDS: NIFEdipine E.R 60 MG TABLET PO SCH (10:01)
[2025-05-16 10:20] LABS: MCHC 33.3 g/dl (32.3-36.5); MEAN CELL VOLUME 82.7 fl (79.0-92.2); MEAN PLT VOLUME 11.0 fl (9.4-12.4); RDW 14.1 % (12.2-16.4)
[2025-05-16 10:39] LABS: CREATININE 0.5 mg/dL (0.55-1.3); SGPT/ALT 31 U/L (13-61)
[2025-05-16 10:40] LABS: CO2 31 mmol/L (21-32); GLUCOSE,RANDOM 126 mg/dL (74-106)
[2025-05-16 10:41] LABS: TOT PROT 8.0 g/dl (6.4-8.2)
[2025-05-16 10:42] LABS: ALK PHOS 111 U/L (45-117)
[2025-05-16 10:44] LABS: SGOT/AST 49 U/L (15-37)
[2025-05-16] MEDS ORDERED: METHOCARBAMOL 500 MG TABLET PO PRN (14:25)
[2025-05-16] MEDS: MAGNESIUM OXIDE 400 MG TABLET (FP) PO SCH (17:59)
[2025-05-16 21:30] VITALS: RESP 18
[2025-05-17 09:23] VITALS: BP 147/87; PULSE 82; TEMP 98
== END 2025-05-17 11:05 | disposition home or self-care (01) | DRG 897 ==
LOC: YASAS 13:49 → Y6N 17:03
PROVIDERS: ADMIT Neuromusculoskeletal Medicine & OMM; ATTEND Allergy & Immunology
PROC: HZ2ZZZZ Detoxification Services for Substance Abuse Treatment (ICD-10-PCS; principal; 2025-05-15)
DX: F10.230 Alcohol dependence with withdrawal, uncomplicated (principal); Z59.00 Homelessness unspecified; I11.0 Hypertensive heart disease with heart failure; I50.9 Heart failure, unspecified; E78.5 Hyperlipidemia, unspecified; Z96.652 Presence of left artificial knee joint; R26.81 Unsteadiness on feet; E66.9 Obesity, unspecified; Z68.36 Body mass index [BMI] 36.0-36.9, adult
CPT/HCPCS: 36415; 80053; 80307; 83735; 83880; 85027; 86780; 93005; 93010